=== PATIENT | female | born 1970 | race Caucasian/White ===

== ENCOUNTER 2018-08-30 15:17 | Emergency (ER) | payer OTHER ==
--- NOTE | 2018-08-30 15:19 | PDOC ---
History of Present Illness - General Chief Complaint: Seizure Stated Complaint: SEIZURE Time Seen by Provider: 08/30/18 15:18 *DC/Admit/Observation/Transfer - Discharge Dispostion Condition at time of disposition: Stable - Referrals - Patient Instructions - Post Discharge Activity
[2018-08-30] MEDS ORDERED: SODIUM CHLORIDE 1,000 ML IV STA (15:29)
[2018-08-30 15:42] VITALS: BP 109/67; PULSE 83; TEMP 97.6; BMI 22.3
--- NOTE | 2018-08-30 16:05 | PDOC ---
History of Present Illness - General Chief Complaint: Seizure Stated Complaint: SEIZURE Time Seen by Provider: 08/30/18 15:18 History Source: Patient Exam Limitations: No Limitations - History of Present Illness Initial Comments: 08/30/18 15:56 Pt is a 47yo f with PMH of epilepsy BIBA for a witnessed seizure episode that happened around 1 hour ago. Per witness, pt was sitting on the bed and fell back , had grand mal seizures. Pt stated she felt an aura which consists of a "shimmer and whirly vision". She does not recall what happened. Per witness pt was out for 3 minutes and woke up confused. No loss of bowel/bladder, no tongue biting. Last seizure was 2 years ago, pt fell and hit her face and needed reconstructive surgery. She is currently taking Keppra 2g daily. She was in the hospital last year for abnormal EEG and Keppra dose was increased to 2.5g but pt reported drowsiness and dose was reduced back to 2g. Pt admits to muscle soreness in her shoulders. Denies headache, neck pain, n/v/d, abdominal pain. She had taken Lamictal and Dilantin in the past, but she would have breakthrough seizures on those medications. Denies alcohol, illicit drug use. She states that she has been feeling stressed lately PMD: Julius? Neurologist: Jose Antonio PMH: see hpi PSH: facial reconstruction Meds: Keppra, Gabapentin, Prozac Social: occasional alcohol use. Past History - Past Medical History Allergies/Adverse Reactions: Allergies Allergy/AdvReac Type Severity Reaction Status Date / Time azithromycin Allergy Verified 08/30/18 15:20 morphine Allergy Verified 08/30/18 15:20 Home Medications: Ambulatory Orders Fluoxetine HCl [Prozac] 40 mg PO DAILY 08/30/18 Levetiracetam [Keppra] 1,000 mg PO BID 08/30/18 levETIRAcetam [Keppra -] 500 mg PO DAILY #7 tablet 08/30/18 COPD: No Seizures: Yes - Suicide/Smoking/Psychosocial Hx Smoking History: Never smoked Have you smoked in the past 12 months: No Review of Systems - Review of Systems Constitutional: No: Symptoms Reported HEENTM: No: Eye Pain, Double Vision, Ear Pain, Nose Bleeding, Throat Pain, Mouth Pain Respiratory: No: Cough, Shortness of Breath Cardiac (ROS): No: Chest Pain, Lightheadedness, Palpitations, Syncope ABD/GI: No: Constipated, Diarrhea, Nausea, Vomiting, Abdominal cramping : No: Burning, Dysuria, Hematuria, Incontinence Musculoskeletal: Yes: Muscle Pain (shoulder). No: Back Pain, Joint Pain, Neck Pain Integumentary: No: Symptoms Reported Neurological: Yes: Seizure. No: Headache, Numbness, Paresthesia, Tingling, Tremors *Physical Exam - Vital Signs Last Vital Signs Temp Pulse Resp BP Pulse Ox 97.6 F 83 18 109/67 97 08/30/18 15:17 08/30/18 15:17 08/30/18 15:17 08/30/18 15:17 08/30/18 15:17 - Physical Exam Comments: 08/30/18 16:06 Pt crying in bed General Appearance: Yes: Nourished, Appropriately Dressed, Moderate Distress HEENT: positive: EOMI, CLEO, Pharynx Normal Neck: positive: Trachea midline, Supple. negative: Lymphadenopathy (R), Lymphadenopathy (L) Respiratory/Chest: positive: Lungs Clear, Normal Breath Sounds. negative: Crackles, Rales, Rhonchi, Stridor, Wheezing Cardiovascular: positive: Regular Rhythm, Regular Rate, S1, S2. negative: Edema , JVD, Murmur Vascular Pulses: Carotid (R): 2+, Carotid (L): 2+, Dorsalis-Pedis (R): 2+, Doralis-Pedis (L): 2+ Gastrointestinal/Abdominal: positive: Normal Bowel Sounds, Soft. negative: Tender Musculoskeletal: negative: CVA Tenderness, Muscle Spasm, Vertebral Tenderness Extremity: positive: Normal Capillary Refill. negative: Pedal Edema, Swelling, Calf Tenderness Integumentary: positive: Normal Color, Dry, Warm, Other (no lesions on scalp) Neurologic: positive: packaging sales representative II-XII NML intact, Fully Oriented, Alert, Normal Mood/ Affect, Normal Response, Motor Strength 5/5. negative: Numbness, Sensory Deficit ED Treatment Course - LABORATORY CBC & Chemistry Diagram: 08/30/18 16:05 08/30/18 16:05 Medical Decision Making - Medical Decision Making 08/30/18 16:07 Pt is a 47yo f with PMH of epilepsy BIBA for a witnessed seizure episode that happened around 1 hour ago 3 minutes in duration, grand mal. Last seizure 2 years ago. Pt is on Keppra 2g daily Vitals: wnl PE: benign, no tongue laceration, no scalp lesion, no neurological deficits, normal neurological exam. -Most likely breakthrough seizure order cbc and cmp to check for electrolytes. Keppra level also ordered and CPK. 08/30/18 17:04 Labs wnl. Keppra pending. Will call neurologist, Dr. Brady at [facility]. 08/30/18 19:05 Dr. Muñoz called back. Will increase pt night dose of Keppra to 1500mg. Will give Rx to pt for 500mg x7 days to add on to nightly dose. Pt will schedule follow up in the week. Pt agreed to plan. can be dc home. given return precautions. *DC/Admit/Observation/Transfer Diagnosis at time of Disposition: Seizures - Discharge Dispostion Disposition: HOME Condition at time of disposition: Stable Decision to Admit order: No - Prescriptions Prescriptions: levETIRAcetam [Keppra -] 500 mg PO DAILY #7 tablet - Referrals - Patient Instructions Printed Discharge Instructions: DI for Seizure Disorder -- Adult Additional Instructions: You were seen here today because you had a seizure. Your tests were normal. I have spoken to the neurologist thermostatic controls supervisor for Dr. Brady and he said that your dose should be increased. Take 1000mg in the morning and 1500mg at night. I sent a prescription for Keppra 500mg for you take at night with the 1000mg you already have so that the total is 1500mg. Please try to follow up with Dr. Brady within the week so that you can have better control of your seizures. Come back to the emergency room if: you have another seizure, if you injure yourself, if your seizure lasts more than 5 minutes, if you have back to back seizures or if any new concerning symptom develops. Thank you - Post Discharge Activity
[2018-08-30 16:28] LABS: BASO % 0.1 % (0-2.0); HEMATOCRIT 42.6 % (32.4-45.2); HEMOGLOBIN 14.3 GM/dl (10.7-15.3); LYMPH % 20.3 % (8-40); MCH 32.6 pg (25.7-33.7); MCHC 33.7 g/dl (32.0-36.0); MEAN CELL VOLUME 96.8 fl (80-96); MEAN PLT VOLUME 9.8 fl (7.5-11.1); MONO % 12.5 % (3.8-10.2); NEUT % 66.1 % (42.8-82.8); PLATELET COUNT 222 K/MM3 (134-434); RDW 12.3 % (11.6-15.6); WHITE BLOOD COUNT 6.2 K/mm3 (4.0-10.8)
[2018-08-30 16:43] LABS: ALBUMIN 4.9 g/dl (3.5-5.0); ALK PHOS 60 U/L (32-92); ANION GAP 11 MMOL/L (8-16); BILIRUBIN,TOTAL 0.6 mg/dl (0.2-1.0); BLOOD UREA NITROGEN 12 mg/dl (7-18); CHLORIDE 105 mmol/L (98-107); CO2 19 mmol/L (22-28); CREATININE 0.9 mg/dl (0.6-1.3); GLUCOSE,RANDOM 104 mg/dl (74-106); POTASSIUM 3.4 mmol/L (3.5-5.1); SGOT/AST 34 U/L (10-42); SGPT/ALT 34 U/L (10-40); SODIUM 135 mmol/L (136-145); TOT PROT 7.7 g/dl (6.4-8.3)
[2018-08-30] MEDS ORDERED: levETIRAcetam 500 MG TABLET (FP) PO ONE (17:20)
== END 2018-08-30 17:35 | disposition home or self-care (01) ==
LOC: FER 15:17
PROC: 3E0337Z Introduction of Electrolytic and Water Balance Substance into Peripheral Vein, Percutaneous Approach (ICD-10-PCS; principal; 2018-08-30)
DX: G40.909 Epilepsy, unspecified, not intractable, without status epilepticus (principal)
CPT/HCPCS: 36415; 80053; 80177; 82550; 85025; 99284-25; J7030